=== PATIENT | male | born 1960 | race Two or more races ===

== ENCOUNTER 2018-02-20 12:10 | Outpatient (CLI) | payer OTHER | END 2018-02-20 12:24 | disposition home or self-care (01) | LOC: RAD 12:10 | DX: M25.512 Pain in left shoulder (principal) ==

== ENCOUNTER 2018-11-24 10:46 | Outpatient (CLI) | payer OTHER | END 2018-11-24 11:03 | disposition home or self-care (01) | LOC: LAB 10:46 | DX: L02.511 Cutaneous abscess of right hand (principal) ==

== ENCOUNTER 2021-04-15 10:32 | Outpatient (CLI) | payer OTHER | END 2021-04-15 10:42 | disposition home or self-care (01) | LOC: RAD 10:32 | PROVIDERS: ATTEND Orthopaedic Surgery | DX: M25.512 Pain in left shoulder (principal) ==

== ENCOUNTER 2023-01-05 16:37 | Outpatient (CLI) | payer OTHER | END 2023-01-05 16:44 | disposition home or self-care (01) | LOC: RAD 16:37 | PROVIDERS: ATTEND Orthopaedic Surgery | DX: M25.561 Pain in right knee (principal) ==